=== PATIENT | female | born 1965 | race Caucasian/White ===

== ENCOUNTER 2017-03-21 12:55 | Day surgery (SDC) | payer OTHER ==
[~2017-03-21] VITALS: Ht 160 cm; Wt 51.3 kg
[~2017-03-21 12:55] MED LIST: CARAFATE1 GM/10 ML PO; CLARITIN10 MG PO; FLUTICASONE PRO16 GM NS; GABAPENTIN100 MG PO; IRON18 MG PO; PRILOSEC OTC20 MG PO; VITAMIN D32000 UNI1 PO
[2017-03-21] MEDS ORDERED: MULTIVITAMINS1 EAC7 PO (13:06)
--- NOTE | 2017-03-21 14:14 | NUR ---
03/21/17 1414 Carly Boswell 1355 RESP EVEN AND UNLABORED. 1409 MD AT BED SIDE. 1410 O2 REMOVED, O2 SAT 100%.
--- NOTE | 2017-03-22 07:58 | OR ---
[facility] [address] [place], [place] [address] Signed DATE OF OPERATION: 03/21/2017 SURGEON: Cesario Potter MD PREOPERATIVE DIAGNOSES: 1. Recurrent epigastric pain. 2. New onset anxiety disorder. POSTOPERATIVE DIAGNOSIS: Mild proximal gastritis, otherwise normal. PROCEDURE: Esophagogastroduodenoscopy with biopsy. ANESTHESIA: Intravenous sedation, propofol infusion, Noe Magana CRNA INDICATION: This 52-year-old white woman is a patient Dr. James Luciano and was seen by me in 2016 in evaluation for iron-deficiency anemia. Colonoscopy and upper endoscopy were performed showing no evidence of lesion to account for this. She was last seen on March 14, 2016. Her anemia seemed to resolve entirely. She was taking an iron supplement. In more recent time, she has had rather severe disabling upper abdominal pain. She does not seem to have a biliary source of her symptoms, however. She was improved with Carafate and Prilosec administration and is admitted at this time to undergo upper endoscopy once again to assess for ulcer or infectious cause of her pain. She notes that she is markedly improved with the current regimen of medication. She had associated anxiety with these episodes that was nearly disabling, it is noted. She is not known to previously have an anxiety disorder in any way. FINDINGS: The esophagus, stomach, and duodenum generally appeared normal. There was a small hiatal hernia. There was mild proximal gastritis, but no ulceration. The esophagus itself was entirely normal in distal portion and mild felinization of the midesophagus, though no clear evidence of eosinophilic esophagitis. The duodenum and stomach were otherwise normal and CLOtest was negative. DESCRIPTION OF PROCEDURE: Electronically Signed By: CESARIO POTTER MD 03/22/17 0758 PATIENT NAME: LOUISE LAURA OPERATIVE REPORT DATE OF : 65 PHYSICIAN: CESARIO POTTER MD REPORT #: [id number] REPORT IS CONFIDENTIAL AND NOT TO BE RELEASED WITHOUT AUTHORIZATION [facility] [address] [place], [place] [address] Signed The patient was brought to the endoscopy suite and given topical Hurricaine spray hypopharyngeal anesthesia and placed in lateral decubitus position. She was given intravenous sedation with propofol infusional technique by the acoustical logging engineer. A bite block was placed. An Olympus video upper endoscope was passed in the hypopharynx. The vocal cords appeared normal. Scope was advanced to the esophagus. It looked normal from the outset. The scope was advanced to the distal esophagus, which again appeared normal. Scope was passed to the stomach, which was insufflated with air. There was a bit of bilious fluid, but not much. The pylorus was normal. Scope was passed through it into the duodenum, which appeared normal. Biopsies were taken of the duodenum both proximally and distally. The scope was withdrawn to the antrum, where biopsies were obtained for both ROSHAN and pathologic testing. Retroflex view was undertaken showing a small hiatal hernia. The proximal gastric mucosa had a somewhat granular appearance, but no ulceration or obvious inflammatory change. Biopsies were taken there as well. The scope was straightened and withdrawn to the distal esophagus, which appeared entirely normal in every way. Biopsies were nevertheless obtained in the mid esophagus. There was mild hint felinization, though this was not certain and biopsies obtained there as well. The scope was further withdrawn. There were no findings of concern more proximally. The patient was taken to recovery room in good condition. CONCLUDING DIAGNOSIS: Uncertain etiology of her pain. It is notable that she has improved with Carafate and PPI medication. We will keep her on those for the time being. We will review her other historical features particularly regarding biliary disease. MD NATO Galloway/BARRERA /[id number] Electronically Signed By: CESARIO POTTER MD 03/22/17 0758 PATIENT NAME: LOUISE LAURA OPERATIVE REPORT DATE OF : 65 PHYSICIAN: CESARIO POTTER MD REPORT #: [id number] REPORT IS CONFIDENTIAL AND NOT TO BE RELEASED WITHOUT AUTHORIZATION [facility] [address] [facility] [place], [place] [address] Signed cc: Jamal Luciano MD Electronically Signed By: CESARIO POTTER MD 03/22/17 0758 PATIENT NAME: LOUISE LAURA OPERATIVE REPORT DATE OF : 65 PHYSICIAN: CESARIO POTTER MD REPORT #: [id number] REPORT IS CONFIDENTIAL AND NOT TO BE RELEASED WITHOUT AUTHORIZATION
== END 2017-03-21 15:03 | disposition home or self-care (01) ==
LOC: OPS 12:55 → DS 12:55 → OPS 14:00
PROVIDERS: Surgery
PROC: 0DB68ZX Excision of Stomach, Via Natural or Artificial Opening Endoscopic, Diagnostic (ICD-10-PCS; 2017-03-21)
PROC: 0DB28ZX Excision of Middle Esophagus, Via Natural or Artificial Opening Endoscopic, Diagnostic (ICD-10-PCS; 2017-03-21)
PROC: 0DB38ZX Excision of Lower Esophagus, Via Natural or Artificial Opening Endoscopic, Diagnostic (ICD-10-PCS; 2017-03-21)
PROC: 0DB98ZX Excision of Duodenum, Via Natural or Artificial Opening Endoscopic, Diagnostic (ICD-10-PCS; principal; 2017-03-21 14:00)
DX: K29.50 Unspecified chronic gastritis without bleeding (principal); D50.9 Iron deficiency anemia, unspecified; G47.30 Sleep apnea, unspecified; F41.9 Anxiety disorder, unspecified; Z86.010 Personal history of colon polyps; Z88.1 Allergy status to other antibiotic agents; Z98.818 Other dental procedure status; Z98.890 Other specified postprocedural states; Z79.899 Other long term (current) drug therapy
CPT/HCPCS: 00740; J2704; J7120